=== PATIENT | female | born 1955 | race Caucasian/White ===

== ENCOUNTER 2017-09-29 06:08 | Day surgery (SDC) | payer OTHER ==
[~2017-09-29 06:08] MED LIST: Lactated Ringers 1,000 ML IV SCH; Lidocaine 1%/Sod Bicarbonate in NS 8.4% 1 ML Syringe IV PRN; Sodium Chloride 0.9% 10 ML Syringe FLUSH PRN
[2017-09-29] MEDS ORDERED: Bupivacaine 0.25% 30 ML SDV ONE (06:25)
[2017-09-29] MEDS ORDERED: Sennosides 8.6 MG Tab PO PRN (06:33)
[2017-09-29] MEDS ORDERED: Naloxone 0.4 MG/ML SDV IVPUSH PRN (06:33)
[2017-09-29] MEDS ORDERED: Morphine 2 MG/ML Syringe IVPUSH PRN (06:33)
[2017-09-29] MEDS ORDERED: Ondansetron 4 MG/2 ML SDV IVPUSH PRN (06:33)
[2017-09-29] MEDS ORDERED: Magnesium Hydroxide 400 MG/5 ML Susp 30 ML Cup PO PRN (06:33)
[2017-09-29] MEDS ORDERED: diphenhydrAMINE 50 MG/ML SDV IVPUSH PRN ×2 (06:33→08:19)
[2017-09-29] MEDS ORDERED: Bisacodyl 5 MG Tab PO PRN (06:33)
[2017-09-29] MEDS ORDERED: Ketorolac 15 MG/ML SDV IVPUSH PRN (06:39)
--- NOTE | 2017-09-29 06:53 | PCM.PREANE ---
Preanesthetic Assessment - Procedure Proposed Procedure: Left Total Knee Arthroplasty - Anesthesia/Transfusion/Family Hx Anesthesia History: Prior Anesthesia Without Reaction Family History of Anesthesia Reaction: No Transfusion History: No Prior Transfusion(s) - Review of Systems General: No Symptoms, Other (Mild sore throat for the past few days) Pulmonary: No Symptoms Cardiovascular: No Symptoms Gastrointestinal: Other (GERD controlled with medications. ) Neurological: No Symptoms Other: Reports: None - Physical Assessment NPO Status Date: 09/28/17 NPO Status Time: 23:00 Pulse: 71 O2 Sat by Pulse Oximetry: 96 Respiratory Rate: 16 Blood Pressure: 155/87 Temperature: 37.1 C Weight: 73 kg ASA Class: 2 Mental Status: Alert & Oriented x3 Airway Class: Mallampati = 1 Dentition: Reports: Normal Dentition Thyro-Mental Finger Breadths: 3 Mouth Opening Finger Breadths: 3 ROM/Head Extension: Full Lungs: Clear to Auscultation, Normal Respiratory Effort Cardiovascular: Regular Rate, Regular Rhythm - Lab Values: Laboratory Last Values MRSA (PCR) Negative 09/17/17 13:34 - Imaging/EKG Impressions: Reviewed from Clinic. NSR. Rate 61 bpm. - Allergies Allergies/Adverse Reactions: Allergies Allergy/AdvReac Type Severity Reaction Status Date / Time No Known Allergies Allergy Verified 09/26/17 13:02 - Acknowledgements Anesthesia Type Planned: Spinal Pt an Appropriate Candidate for the Planned Anesthesia: Yes Alternatives and Risks of Anesthesia Discussed w Pt/Guardian: Yes Pt/Guardian Understands and Agrees with Anesthesia Plan: Yes Additional Comments: Dr. Medina aware patient complains of a sore throat, no other signs/symptoms noted. Proceed with procedure as planned per Dr. Medina. PreAnesthesia Questionnaire HEENT History: Reports: Sinusitis Cardiovascular History: Reports: Heart Murmur, High Cholesterol Gastrointestinal History: Reports: GERD Musculoskeletal History: Reports: Arthritis, Osteoarthritis Neurological History: Reports: Migraines - Past Surgical History HEENT Surgical History: Reports: Cataract Surgery GI Surgical History: Reports: Appendectomy, Colonoscopy Female Surgical History: Reports: Breast Biopsy - SUBSTANCE USE Smoking Status *Q: Never Smoker Recreational Drug Use History: No - HOME MEDS Home Medications: Home Meds Calcium Carbonate [Calcium] 1 tab PO DAILY 09/26/17 [History] Cholecalciferol (Vitamin D3) [Vitamin D3] 1 cap PO DAILY 09/26/17 [History] Lansoprazole 15 mg PO DAILY 09/26/17 [History] - CURRENT (IN HOUSE) MEDS Current Meds: Current Medications Bisacodyl (Dulcolax) 5 mg PO DAILY PRN PRN Reason: Constipation Morphine Sulfate 8 mg/Epinephrine HCl 0.3 mg/Cefuroxime Sodium 750 mg/Ketorolac Tromethamine 30 mg/Sodium Chloride 27.9 ml 0 mg .XX ONETIME ONE Stop: 09/29/17 06:40 Cyclobenzaprine HCl (Flexeril) 10 mg PO TID PRN PRN Reason: Spasms Diphenhydramine HCl (Benadryl) 25 mg IVPUSH Q4H PRN PRN Reason: Nausea Docusate Sodium (Colace) 100 mg PO BID PRN PRN Reason: Constipation Famotidine (Pepcid) 20 mg PO Q12H [facility] Lactated Ringer's (Ringers, Lactated) 1,000 mls @ 125 mls/hr IV ASDIRECTED [facility] Stop: 09/29/17 18:00 Cefazolin Sodium/Dextrose 2 gm (/ Premix) 50 mls @ 100 mls/hr IV Q8H [facility] Stop: 09/29/17 23:14 Ketorolac Tromethamine (Toradol) 15 mg IVPUSH Q6H PRN PRN Reason: Pain Lidocaine/Sodium Bicarbonate (Buffered Lidocaine 1% In Ns 8.4%) 0.25 ml IV ONETIME PRN PRN Reason: Prior to IV Start Stop: 09/29/17 18:00 Magnesium Hydroxide (Milk Of Magnesia) 30 ml PO BID PRN PRN Reason: Constipation Morphine Sulfate (Morphine) 2 mg IVPUSH Q2H PRN PRN Reason: Breakthrough Pain Naloxone HCl (Narcan) 0.1 mg IVPUSH Q5M PRN PRN Reason: Oversedation Ondansetron HCl (Zofran) 4 mg IVPUSH Q6H PRN PRN Reason: Nausea/Vomiting Oxycodone/Acetaminophen (Percocet 325-5 Mg) 1 - 2 tab PO Q4H PRN PRN Reason: Pain Rivaroxaban (Xarelto) 10 mg PO DAILY COLLIN Senna (Senna) 8.6 mg PO BID PRN PRN Reason: Constipation Sodium Chloride (Saline Flush) 10 ml FLUSH ASDIRECTED PRN PRN Reason: Keep Vein Open Stop: 09/29/17 18:00 Discontinued Medications Bupivacaine HCl (Marcaine 0.25%) Confirm Administered Dose 30 ml .ROUTE .STK- MED ONE Stop: 09/29/17 06:26 Cefazolin Sodium (Ancef) Confirm Administered Dose 2 gm .ROUTE .STK-MED ONE Stop: 09/29/17 06:25 Iodine (Iodine 2% Mild Tincture) Confirm Administered Dose 30 ml .ROUTE .STK- MED ONE Stop: 09/29/17 06:25 Tranexamic Acid (Cyklokapron) Confirm Administered Dose 1,000 mg .ROUTE .STK- MED ONE Stop: 09/29/17 06:25 Triamcinolone Acetonide (Kenalog-40) Confirm Administered Dose 80 mg .ROUTE .STK -MED ONE Stop: 09/29/17 06:25 Vancomycin HCl (Vancomycin) Confirm Administered Dose 1 gm .ROUTE .STK-MED ONE Stop: 09/29/17 06:25
[2017-09-29] MEDS ORDERED: Morphine PF 1 MG/ML Amp ONE (06:55)
[2017-09-29] MEDS ORDERED: Famotidine 20 MG/2 ML SDV ONE (06:55)
[2017-09-29] MEDS ORDERED: Propofol 200 MG/20 ML SDV ONE (07:03)
[2017-09-29] MEDS ORDERED: fentaNYL 100 MCG/2 ML SDV ONE (07:03)
[2017-09-29] MEDS ORDERED: Lidocaine 1% 4 ML ONE (07:04)
[2017-09-29] MEDS ORDERED: Midazolam 1 MG/ML 2 ML SDV ONE (07:04)
[2017-09-29] MEDS ORDERED: ceFAZolin 1 GM Vial ONE (07:04)
[2017-09-29] MEDS ORDERED: Ketamine 500 mg/10 ML MDV ONE (07:04)
[2017-09-29] MEDS ORDERED: Ondansetron 4 MG/2 ML SDV ONE (08:16)
[2017-09-29] MEDS ORDERED: Lactated Ringers 2,000 ML ONE (08:16)
[2017-09-29] MEDS ORDERED: Dexamethasone 4 MG/ML SDV ONE (08:17)
[2017-09-29] MEDS ORDERED: Ketorolac 30 MG/ML SDV ONE (08:17)
[2017-09-29] MEDS ORDERED: ePHEDrine 50 MG/ML SDV IVPUSH PRN (08:19)
[2017-09-29] MEDS ORDERED: fentaNYL 100 MCG/2 ML SDV IVPUSH PRN (08:19)
[2017-09-29] MEDS: Iodine/Sodium Iodide 2% Tincture 30 ML Bottle ONE ×2 (08:26→08:36)
[2017-09-29] MEDS: ceFAZolin 1 GM Vial ONE ×2 (08:26→08:40)
[2017-09-29] MEDS: Bupivacaine 0.25% 30 ML SDV ONE ×4 (08:27→09:23)
[2017-09-29] MEDS: Vancomycin 1 GM SDV ONE ×2 (08:34→08:49)
[2017-09-29] MEDS: Triamcinolone Acetonide 40 MG/ML 1 ML MDV ONE ×2 (08:35→09:23)
[2017-09-29] MEDS ORDERED: Morphine 8 MG, EPINEPHrine 0.3 MG, Cefuroxime 750 MG, Ketorolac 30 MG, Sodium Chloride ... ONE ×5 (09:00)
--- NOTE | 2017-09-29 09:35 | PCM.POSTAN ---
POST ANESTHESIA ASSESSMENT - MENTAL STATUS Mental Status: Alert, Oriented - VITAL SIGNS Pulse Rate: 97 SaO2: 95 Resp Rate: 17 Blood Pressure: 115/66 Temperature: 37.2 C - RESPIRATORY Respiratory Status: Respiratory Rate WNL, Airway Patent, O2 Saturation Stable, Supplemental Oxygen - CARDIOVASCULAR CV Status: Pulse Rate WNL, Blood Pressure Stable - GASTROINTESTINAL GI Status: No Symptoms - PAIN Pain Score: 0 - POST OP HYDRATION Hydration Status: Adequate & Stable
[2017-09-29] MEDS ORDERED: Morphine 4 MG/ML Syringe IVPUSH PRN (09:36)
--- NOTE | 2017-09-29 10:16 | CR ---
Left knee: AP and lateral views of the left knee were obtained. Comparison: No prior knee exam. Knee prosthesis is seen. Components are aligned. Underlying bony structures appear intact. Soft tissue air is noted from the procedure. Impression: 1. Satisfactory radiographic appearance of recently placed left knee prosthesis. Diagnostic code #2
[2017-09-29] MEDS ORDERED: Haloperidol Lactate 5 MG/ML SDV IVPUSH ONE (10:30)
[2017-09-29] MEDS: ceFAZolin 2 GM in Premix Bag 1 BAG IV SCH ×2 (15:51→22:31)
--- NOTE | 2017-09-29 17:08 | PCM.CONS ---
H&P History of Present Illness - General Date of Service: 09/29/17 Admit Problem/Dx: Admission Diagnosis/Problem Admission Diagnosis/Problem Osteoarthritis of knee Source of Information: Patient, Old Records, Provider, RN, RN Notes Reviewed, Other (Surgical notes ) History Limitations: Reports: No Limitations - History of Present Illness Initial Comments - Free Text/Narative: Adilia Arthur is a 62 yo [address] patient of Dr. Medina who is post-operative day 0 of left TKA and right knee cortisone injection. Hospital medicine was consulted for post-operative medical care. At this time she is resting in bed. Pain is controlled. She eyes any chest pain, shortness of breath, or palpitations. She does have some intermittent nausea and vomiting. Reglan is ordered. She carries a history of: GERD, HLD, heart murmur, osteoarthritis, arthritis, migraines. She was never a smoker. She is a full code. Her primary care provider is Dr. Lentz, here at [facility]. Left Knee Pain Score (Numeric/FACES): 3 - Related Data Allergies/Adverse Reactions: Allergies Allergy/AdvReac Type Severity Reaction Status Date / Time No Known Allergies Allergy Verified 09/26/17 13:02 Home Medications: Home Meds Calcium Carbonate [Calcium] 1 tab PO DAILY 09/26/17 [History] Cholecalciferol (Vitamin D3) [Vitamin D3] 1 cap PO DAILY 09/26/17 [History] Lansoprazole 15 mg PO DAILY 09/26/17 [History] Past Medical History HEENT History: Reports: Sinusitis Cardiovascular History: Reports: Heart Murmur, High Cholesterol Gastrointestinal History: Reports: GERD Musculoskeletal History: Reports: Arthritis, Osteoarthritis Neurological History: Reports: Migraines - Past Surgical History HEENT Surgical History: Reports: Cataract Surgery GI Surgical History: Reports: Appendectomy, Colonoscopy Female Surgical History: Reports: Breast Biopsy Social & Family History - Tobacco Use Smoking Status *Q: Never Smoker - Recreational Drug Use Recreational Drug Use: No Drug Use in Last 12 Months: No H&P Review of Systems - Review of Systems: Review Of Systems: See Below General: Reports: No Symptoms. Denies: Fever, Chills, Malaise, Weakness HEENT: Reports: No Symptoms. Denies: Ear Pain, Eye Pain, Headaches, Visual Changes Pulmonary: Reports: No Symptoms. Denies: Shortness of Breath, Wheezing, Pleuritic Chest Pain Cardiovascular: Reports: No Symptoms. Denies: Chest Pain, Palpitations, Dyspnea on Exertion, Lightheadedness Gastrointestinal: Reports: Nausea, Vomiting. Denies: Abdominal Pain, Constipation, Diarrhea Genitourinary: Reports: No Symptoms. Denies: Dysuria, Frequency, Burning, Pain , Urgency Musculoskeletal: Reports: Joint Pain (left knee ) Skin: Reports: No Symptoms Psychiatric: Reports: No Symptoms Neurological: Reports: No Symptoms Hematologic/Lymphatic: Reports: No Symptoms Immunologic: Reports: No Symptoms Exam - Exam Exam: See Below - Vital Signs Vital Signs: Last Vital Signs Temp 97.5 F 09/29/17 15:00 Pulse 57 L 09/29/17 15:00 Resp 19 09/29/17 15:00 BP 144/65 H 09/29/17 15:00 Pulse Ox 94 L 09/29/17 15:00 Weight: 160 lb 14.999 oz - Exam Quality Assessment: Supplemental Oxygen, DVT Prophylaxis General: Alert, Oriented, Cooperative. No: Mild Distress HEENT: PERRLA, Hearing Intact, Mucosa Moist & Milnor, Nares Patent, Normal Nasal Septum, Posterior Pharynx Clear, Conjunctiva Clear, EOMI, EACs Clear, TMs Clear Neck: Supple, Trachea Midline. No: JVD, Thyromegaly Lungs: Clear to Auscultation, Normal Respiratory Effort Cardiovascular: Regular Rate, Regular Rhythm GI/Abdominal Exam: Normal Bowel Sounds, Soft, Non-Tender, No Organomegaly, No Distention, No Abnormal Bruit, No Mass, Pelvis Stable (Female) Exam: Deferred Rectal (Female) Exam: Deferred Back Exam: Normal Inspection, Full Range of Motion Extremities: No Pedal Edema, Normal Capillary Refill, Limited Range of Motion, Other (FABBY bandage on left knee. Bandage is dry and intact. Boutte pack in place. ) Peripheral Pulses: 2+: Radial (L), Radial (R), 3+: Posterior Tibial (L), Posterior Tibial (R), Dorsalis Pedis (L), Dorsalis Pedis (R) Skin: Warm, Dry, Intact Neurological: Cranial Nerves Intact (Grossly) Neuro Extensive - Mental Status: Alert, Oriented x3, Normal Mood/Affect, Normal Cognition Neuro Extensive - Motor, Sensory, Reflexes: CN II-XII Intact. No: Normal Gait Psychiatric: Alert, Normal Affect, Normal Mood Consult PN Assessment/Plan POD#: 0 Procedures: Procedures ASSAY GLUCOSE BLOOD QUANT (12/10/16) ASSAY OF PREALBUMIN (09/12/17) ASSAY OF SERUM ALBUMIN (09/12/17) ASSAY THYROID STIM HORMONE (11/23/14) CHEST X-RAY 2VW FRONTAL&LATL (06/25/17) COMP SCREEN MAMMOGRAM ADD-ON (11/27/15) COMPLETE CBC W/AUTO DIFF WBC (09/12/17) COMPREHEN METABOLIC PANEL (11/23/14) COMPUTER DX MAMMOGRAM ADD-ON (11/21/14) DXA BONE DENSITY AXIAL (12/25/16) LIPID PANEL (12/10/16) METABOLIC PANEL TOTAL CA (09/12/17) PROTHROMBIN TIME (09/12/17) ROUTINE VENIPUNCTURE (09/12/17) THROMBOPLASTIN TIME PARTIAL (09/12/17) ULTRASOUND BREAST LIMITED (06/25/17) (1) S/P total knee arthroplasty SNOMED Code(s): 4824380356739, 8714830832386 Code(s): Z96.659 - PRESENCE OF UNSPECIFIED ARTIFICIAL KNEE JOINT Priority: High Current Visit: Yes Qualifiers: Laterality: left Qualified Code(s): Z96.652 - Presence of left artificial knee joint (2) Osteoarthritis SNOMED Code(s): 125525277 Code(s): M19.90 - UNSPECIFIED OSTEOARTHRITIS, UNSPECIFIED SITE Priority: High Current Visit: Yes Qualifiers: Osteoarthritis location: knee Osteoarthritis type: primary Laterality: bilateral Qualified Code(s): M17.0 - Bilateral primary osteoarthritis of knee (3) HLD (hyperlipidemia) SNOMED Code(s): 49796167 Code(s): E78.5 - HYPERLIPIDEMIA, UNSPECIFIED Priority: Low Current Visit : No Qualifiers: Hyperlipidemia type: unspecified Qualified Code(s): E78.5 - Hyperlipidemia , unspecified (4) Arthritis SNOMED Code(s): 4400387 Code(s): M19.90 - UNSPECIFIED OSTEOARTHRITIS, UNSPECIFIED SITE Current Visit: Yes Problem List Initiated/Reviewed/Updated: Yes Plan: I/P: Acute: S/P Left total knee arthroplasty - post-operative day 0 -DVT prophylaxis and pain management per primary care team -PT/OT -IS/RT -Monitor oxygen saturation -Titrate oxygen as needed -Vital signs stable -Monitor labs -Pre-operative Hgb was 13.8 -Pre-operative eGFR >60 Osteoarthritis of bilateral knees -Pain management per primary care team S/P Right knee cortisone injection -Management per primary care team Post-operative nausea and vomiting -Reglan given -Scopolamine patch ordered Chronic: OA Breast lump HLD GERD Recent H. Pylori infection hx/o migraines Plan: CM for discharge planning GI prophylaxis Home medications as indicated Other orders as listed above Routine AM labs She is a full code. Her PCP is Dr. Lentz here at the [facility]. Thank you for allowing us to participate in the care of this patient!! Total time spend with patient 40 minutes. Requesting Provider: Dr. Medina Date Consult Requested: 09/29/17 Reason for Consult: Post-operative medical managmenet Patient History Reviewed: Yes Admission H&P Reviewed: Yes Time Spent (in minutes): 40
[2017-09-29] MEDS ORDERED: Metoclopramide 10 MG/2 ML SDV IVPUSH SCH (18:30)
[2017-09-29] MEDS ORDERED: Metoclopramide 10 MG/2 ML SDV IVPUSH PRN (18:36)
[2017-09-29] MEDS: Acetaminophen/oxyCODONE 325-5 MG Tab PO PRN (20:02)
[2017-09-29] MEDS ORDERED: Scopolamine 1 MG Transdermal Patch TRDERM PRN (20:08)
[2017-09-29] MEDS ORDERED: Docusate Sodium 100 MG Cap PO PRN (21:00)
[2017-09-29] MEDS: Famotidine 20 MG Tab PO SCH (21:32)
[2017-09-29] MEDS: Docusate Sodium 100 MG Cap PO SCH (21:33)
[2017-09-29] MEDS: Cyclobenzaprine 10 MG Tab PO PRN (21:49)
[2017-09-30] MEDS: Acetaminophen/oxyCODONE 325-5 MG Tab PO PRN ×4 (02:01→14:52)
[2017-09-30] MEDS: ceFAZolin 2 GM in Premix Bag 1 BAG IV SCH (06:05)
[2017-09-30] MEDS: Cyclobenzaprine 10 MG Tab PO PRN ×2 (06:06→14:52)
--- NOTE | 2017-09-30 08:35 | PCM48HPAN ---
Post Anesthesia Note - EVALUATION WITHIN 48HRS OF ANESTHETIC Vital Signs in Normal Range: Yes Patient Participated in Evaluation: Yes Respiratory Function Stable: Yes Airway Patent: Yes Cardiovascular Function Stable: Yes Hydration Status Stable: Yes Pain Control Satisfactory: Yes Nausea and Vomiting Control Satisfactory: Yes (nausea yesterday- much better today) Mental Status Recovered: Yes
--- NOTE | 2017-09-30 08:41 | PCM.SURGPN ---
- General Info Date of Service: 09/30/17 POD#: 1 Functional Status: Reports: Pain Controlled, Tolerating Diet, Ambulating, Urinating, Incentive Spirometry - Review of Systems Musculoskeletal: Reports: Other (The pt met inpatient therapy goals.) - Patient Data Vitals - Most Recent: Last Vital Signs Temp 98.0 F 09/29/17 20:00 Pulse 95 09/29/17 20:00 Resp 18 09/30/17 00:00 BP 131/73 09/29/17 20:00 Pulse Ox 98 09/30/17 07:00 Weight - Most Recent: 160 lb 14.999 oz I&O - Last 24 Hours: Intake & Output 09/29/17 09/30/17 09/30/17 22:59 06:59 14:59 Output Total 1850 Balance -1850 Lab Results Last 24 Hrs: Laboratory Results - last 24 hr 09/30/17 09/30/17 Range/Units 07:40 07:40 WBC 8.86 (3.98-10.04) K/mm3 RBC 3.83 L (3.98-5.22) M/mm3 Hgb 11.6 (11.2-15.7) gm/L Hct 35.5 (34.1-44.9) % MCV 92.7 (79.4-94.8) fl MCH 30.3 (25.6-32.2) pg MCHC 32.7 (32.2-35.5) g/dl RDW Std Deviation 41.8 (36.4-46.3) fL Plt Count 192 (182-369) K/mm3 MPV 9.7 (9.4-12.3) fl Sodium 140 (136-145) mEq/L Potassium 3.9 (3.5-5.1) mEq/L Chloride 103 (98-107) mEq/L Carbon Dioxide 30 (21-32) mEq/L Anion Gap 10.9 (5-15) BUN 13 (7-18) mg/dL Creatinine 0.8 (0.55-1.02) mg/dL Est Cr Clr Drug Dosing 64.58 mL/min Estimated GFR (MDRD) > 60 (>60) mL/min BUN/Creatinine Ratio 16.3 (14-18) Glucose 101 (74-106) mg/dL Calcium 9.1 (8.5-10.1) mg/dL Total Bilirubin 0.4 (0.2-1.0) mg/dL AST 31 (15-37) U/L ALT 29 (14-59) U/L Alkaline Phosphatase 57 (46-116) U/L Total Protein 6.4 (6.4-8.2) g/dl Albumin 3.2 L (3.4-5.0) g/dl Globulin 3.2 gm/dL Albumin/Globulin Ratio 1.0 (1-2) Med Orders - Current: Current Medications Bisacodyl (Dulcolax) 5 mg PO DAILY PRN PRN Reason: Constipation Calcium Carbonate/Glycine (Calcium Carbonate) 600 mg PO DAILY [facility] Cholecalciferol (Vitamin D3) 4,000 units PO DAILY [facility] Cyclobenzaprine HCl (Flexeril) 10 mg PO TID PRN PRN Reason: Spasms Last Admin: 09/30/17 06:06 Dose: 10 mg Diphenhydramine HCl (Benadryl) 25 mg IVPUSH Q4H PRN PRN Reason: Nausea Docusate Sodium (Colace) 100 mg PO BID PRN PRN Reason: Constipation Docusate Sodium (Colace) 100 mg PO BID [facility] Last Admin: 09/29/17 21:33 Dose: 100 mg Famotidine (Pepcid) 20 mg PO Q12H [facility] Last Admin: 09/29/17 21:32 Dose: 20 mg Ketorolac Tromethamine (Toradol) 15 mg IVPUSH Q6H PRN PRN Reason: Pain Magnesium Hydroxide (Milk Of Magnesia) 30 ml PO BID PRN PRN Reason: Constipation Metoclopramide HCl (Reglan) 5 mg IVPUSH Q6H PRN PRN Reason: Nausea/Vomiting Last Admin: 09/29/17 18:52 Dose: 5 mg Morphine Sulfate (Morphine) 2 mg IVPUSH Q2H PRN PRN Reason: Breakthrough Pain Naloxone HCl (Narcan) 0.1 mg IVPUSH Q5M PRN PRN Reason: Oversedation Ondansetron HCl (Zofran) 4 mg IVPUSH Q6H PRN PRN Reason: Nausea/Vomiting Last Admin: 09/29/17 16:00 Dose: 4 mg Oxycodone/Acetaminophen (Percocet 325-5 Mg) 1 - 2 tab PO Q4H PRN PRN Reason: Pain Last Admin: 09/30/17 06:07 Dose: 2 tab Pantoprazole Sodium (Protonix) 40 mg PO ACBREAKFAST COLLIN Rivaroxaban (Xarelto) 10 mg PO DAILY COLLIN Scopolamine (Scopolamine) 1 each TRDERM Q72H PRN PRN Reason: Nausea and vomiting Senna (Senna) 8.6 mg PO BID PRN PRN Reason: Constipation Discontinued Medications Bupivacaine HCl (Marcaine 0.25%) Confirm Administered Dose 30 ml .ROUTE .STK- MED ONE Stop: 09/29/17 06:26 Bupivacaine HCl (Marcaine 0.25%) Confirm Administered Dose 30 ml .ROUTE .STK- MED ONE Stop: 09/29/17 06:51 Last Admin: 09/29/17 09:23 Dose: 4 ml Cefazolin Sodium (Ancef) Confirm Administered Dose 2 gm .ROUTE .STK-MED ONE Stop: 09/29/17 06:25 Last Admin: 09/29/17 08:40 Dose: 2 gm Cefazolin Sodium (Ancef) Confirm Administered Dose 2 gm .ROUTE .STK-MED ONE Stop: 09/29/17 07:05 Morphine Sulfate 8 mg/Epinephrine HCl 0.3 mg/Cefuroxime Sodium 750 mg/Ketorolac Tromethamine 30 mg/Sodium Chloride 27.9 ml 0 mg .XX ONETIME ONE Stop: 09/29/17 09:01 Last Admin: 09/29/17 08:33 Dose: 788.3 mg Dexamethasone (Dexamethasone) Confirm Administered Dose 4 mg .ROUTE .STK-MED ONE Stop: 09/29/17 08:18 Diphenhydramine HCl (Benadryl) 25 mg IVPUSH Q6H PRN PRN Reason: Pruritis Ephedrine Sulfate (Ephedrine Sulfate) 5 mg IVPUSH ASDIRECTED PRN PRN Reason: Hypotension Stop: 09/29/17 21:00 Famotidine (Pepcid) Confirm Administered Dose 20 mg .ROUTE .STK-MED ONE Stop: 09/29/17 06:56 Fentanyl (Sublimaze) Confirm Administered Dose 100 mcg .ROUTE .STK-MED ONE Stop: 09/29/17 07:04 Fentanyl (Sublimaze) 50 mcg IVPUSH Q5M PRN PRN Reason: Pain Stop: 09/29/17 16:00 Haloperidol Lactate (Haldol) 1 mg IVPUSH ONETIME ONE Stop: 09/29/17 10:31 Last Admin: 09/29/17 11:22 Dose: Not Given Lactated Ringer's (Ringers, Lactated) 1,000 mls @ 125 mls/hr IV ASDIRECTED [facility] Stop: 09/29/17 18:00 Cefazolin Sodium/Dextrose 2 gm (/ Premix) 50 mls @ 100 mls/hr IV Q8H [facility] Stop: 09/30/17 07:29 Last Admin: 09/30/17 06:05 Dose: 100 mls/hr Lidocaine HCl (Xylocaine-Mpf 1%) Confirm Administered Dose 4 mls @ as directed .ROUTE .STK-MED ONE Stop: 09/29/17 07:05 Lactated Ringer's (Ringers, Lactated) Confirm Administered Dose 2,000 mls @ as directed .ROUTE .STK-MED ONE Stop: 09/29/17 08:17 Iodine (Iodine 2% Mild Tincture) Confirm Administered Dose 30 ml .ROUTE .STK- MED ONE Stop: 09/29/17 06:25 Last Admin: 09/29/17 08:36 Dose: 18 ml Ketamine HCl (Ketalar) Confirm Administered Dose 500 mg .ROUTE .STK-MED ONE Stop: 09/29/17 07:05 Ketorolac Tromethamine (Toradol) Confirm Administered Dose 30 mg .ROUTE .STK- MED ONE Stop: 09/29/17 08:18 Lidocaine/Sodium Bicarbonate (Buffered Lidocaine 1% In Ns 8.4%) 0.25 ml IV ONETIME PRN PRN Reason: Prior to IV Start Stop: 09/29/17 18:00 Midazolam HCl (Versed 1 Mg/Ml) Confirm Administered Dose 2 mg .ROUTE .STK-MED ONE Stop: 09/29/17 07:05 Morphine Sulfate (Morphine) 2 mg IVPUSH Q2H PRN PRN Reason: Breakthrough Pain Morphine Sulfate (Duramorph Pf) Confirm Administered Dose 1 mg .ROUTE .STK-MED ONE Stop: 09/29/17 06:56 Ondansetron HCl (Zofran) Confirm Administered Dose 4 mg .ROUTE .STK-MED ONE Stop: 09/29/17 08:17 Propofol (Diprivan 20 Ml) Confirm Administered Dose 800 mg .ROUTE .STK-MED ONE Stop: 09/29/17 07:04 Sodium Chloride (Saline Flush) 10 ml FLUSH ASDIRECTED PRN PRN Reason: Keep Vein Open Stop: 09/29/17 18:00 Tranexamic Acid (Cyklokapron) Confirm Administered Dose 1,000 mg .ROUTE .STK- MED ONE Stop: 09/29/17 06:25 Last Admin: 09/29/17 08:54 Dose: 1,000 mg Triamcinolone Acetonide (Kenalog-40) Confirm Administered Dose 80 mg .ROUTE .STK -MED ONE Stop: 09/29/17 06:25 Last Admin: 09/29/17 09:23 Dose: 80 mg Vancomycin HCl (Vancomycin) Confirm Administered Dose 1 gm .ROUTE .STK-MED ONE Stop: 09/29/17 06:25 Last Admin: 09/29/17 08:49 Dose: 1 gm - Exam Wound/Incisions: Dressing Dry and Intact General: Alert, Cooperative, No Acute Distress Lungs: Normal Respiratory Effort Extremities: Other (NVS intact for BLE. Beverly's negative.) - Problem List Review Problem List Initiated/Reviewed/Updated: Yes - My Orders Last 24 Hours: Active Orders 24 hr Category Date Time Status Cooling Warming Measures [RC] ASDIRECTED Care 09/29/17 08:18 Inactive Notify Provider [RC] ASDIRECTED Care 09/29/17 08:19 Active Pulse Oximetry [RC] Q1H Care 09/29/17 08:18 Active Regular Diet [DIET] Diet 09/29/17 Lunch Active Calcium Carbonate Med 09/30/17 09:00 Active 600 mg PO DAILY Cholecalciferol (Vitamin D3) [Vitamin D3] Med 09/30/17 09:00 Active 4,000 units PO DAILY Docusate Sodium [Colace] Med 09/29/17 21:00 Active 100 mg PO BID Docusate Sodium [Colace] Med 09/29/17 21:00 Stop Req 100 mg PO BID PRN Famotidine [Pepcid] Med 09/29/17 21:00 Active 20 mg PO Q12H Metoclopramide [Reglan] Med 09/29/17 18:36 Active 5 mg IVPUSH Q6H PRN Morphine Med 09/29/17 09:36 Active 2 mg IVPUSH Q2H PRN Pantoprazole [ProTONIX] Med 09/30/17 09:00 Active 40 mg PO ACBREAKFAST Rivaroxaban [Xarelto] Med 09/30/17 09:00 Pending 10 mg PO DAILY Scopolamine Med 09/29/17 20:08 Active 1 each TRDERM Q72H PRN Pulse Oximetry Continuous Monitoring [OM.PC] Routine Oth 09/29/17 08:19 Active Medication Orders Bisacodyl (Dulcolax) 5 mg PO DAILY PRN PRN Reason: Constipation Calcium Carbonate/Glycine (Calcium Carbonate) 600 mg PO DAILY COLLIN Cholecalciferol (Vitamin D3) 4,000 units PO DAILY [facility] Cyclobenzaprine HCl (Flexeril) 10 mg PO TID PRN PRN Reason: Spasms Last Admin: 09/30/17 06:06 Dose: 10 mg Admin: 09/29/17 21:49 Dose: 10 mg Diphenhydramine HCl (Benadryl) 25 mg IVPUSH Q4H PRN PRN Reason: Nausea Docusate Sodium (Colace) 100 mg PO BID PRN PRN Reason: Constipation Docusate Sodium (Colace) 100 mg PO BID [facility] Last Admin: 09/29/17 21:33 Dose: 100 mg Famotidine (Pepcid) 20 mg PO Q12H [facility] Last Admin: 09/29/17 21:32 Dose: 20 mg Ketorolac Tromethamine (Toradol) 15 mg IVPUSH Q6H PRN PRN Reason: Pain Magnesium Hydroxide (Milk Of Magnesia) 30 ml PO BID PRN PRN Reason: Constipation Metoclopramide HCl (Reglan) 5 mg IVPUSH Q6H PRN PRN Reason: Nausea/Vomiting Last Admin: 09/29/17 18:52 Dose: 5 mg Morphine Sulfate (Morphine) 2 mg IVPUSH Q2H PRN PRN Reason: Breakthrough Pain Naloxone HCl (Narcan) 0.1 mg IVPUSH Q5M PRN PRN Reason: Oversedation Ondansetron HCl (Zofran) 4 mg IVPUSH Q6H PRN PRN Reason: Nausea/Vomiting Last Admin: 09/29/17 16:00 Dose: 4 mg Oxycodone/Acetaminophen (Percocet 325-5 Mg) 1 - 2 tab PO Q4H PRN PRN Reason: Pain Last Admin: 09/30/17 06:07 Dose: 2 tab Admin: 09/30/17 02:01 Dose: 2 tab Admin: 09/29/17 20:02 Dose: 2 tab Pantoprazole Sodium (Protonix) 40 mg PO ACBREAKFAST COLLIN Rivaroxaban (Xarelto) 10 mg PO DAILY COLLIN Scopolamine (Scopolamine) 1 each TRDERM Q72H PRN PRN Reason: Nausea and vomiting Senna (Senna) 8.6 mg PO BID PRN PRN Reason: Constipation - Assessment Assessment (Free Text/Narrative):: POD#1 - left TKA with right knee cortisone injection - Plan Plan (Free Text/Narrative):: 1. Hgb 11.6. 2. Xarelto for VTE prophylaxis. 3. Discharge to home today. The pt was evaluated by Dr. Medina.
[2017-09-30] MEDS ORDERED: Pantoprazole 40 MG Tab.CR PO SCH (09:00)
[2017-09-30] MEDS: Docusate Sodium 100 MG Cap PO SCH (09:00)
[2017-09-30] MEDS: Famotidine 20 MG Tab PO SCH (09:00)
[2017-09-30] MEDS ORDERED: Cholecalciferol (Vitamin D3) 1,000 Unit Tab PO SCH (09:00)
[2017-09-30] MEDS ORDERED: Calcium Carbonate 600 MG Tab PO SCH (09:00)
[2017-09-30] MEDS ORDERED: Rivaroxaban 10 MG Tab PO SCH (09:00)
--- NOTE | 2017-09-30 12:12 | PCM.CONSN ---
- General Info Date of Service: 09/30/17 Admission Dx/Problem (Free Text): Admission Diagnosis/Problem Admission Diagnosis/Problem Osteoarthritis of knee POD #1 Lt TKA, doing well, pain under good control, no nausea VSS Labs stable Functional Status: Reports: Pain Controlled, Tolerating Diet, Ambulating, Urinating, Incentive Spirometry. Denies: New Symptoms - Review of Systems General: Reports: No Symptoms HEENT: Reports: No Symptoms Pulmonary: Reports: No Symptoms Cardiovascular: Reports: No Symptoms Gastrointestinal: Reports: No Symptoms Genitourinary: Reports: No Symptoms Musculoskeletal: Reports: Leg Pain Skin: Reports: No Symptoms Neurological: Reports: No Symptoms Psychiatric: Reports: No Symptoms - Patient Data Vitals - Most Recent: Last Vital Signs Temp 98.0 F 09/29/17 20:00 Pulse 95 09/29/17 20:00 Resp 18 09/30/17 00:00 BP 131/73 09/29/17 20:00 Pulse Ox 98 09/30/17 07:00 Weight - Most Recent: 160 lb 14.999 oz I&O - Last 24 Hours: Intake & Output 09/29/17 09/30/17 09/30/17 22:59 06:59 14:59 Output Total 1850 Balance -1850 Lab Results Last 24 Hours: Laboratory Results - last 24 hr 09/30/17 09/30/17 Range/Units 07:40 07:40 WBC 8.86 (3.98-10.04) K/mm3 RBC 3.83 L (3.98-5.22) M/mm3 Hgb 11.6 (11.2-15.7) gm/L Hct 35.5 (34.1-44.9) % MCV 92.7 (79.4-94.8) fl MCH 30.3 (25.6-32.2) pg MCHC 32.7 (32.2-35.5) g/dl RDW Std Deviation 41.8 (36.4-46.3) fL Plt Count 192 (182-369) K/mm3 MPV 9.7 (9.4-12.3) fl Sodium 140 (136-145) mEq/L Potassium 3.9 (3.5-5.1) mEq/L Chloride 103 (98-107) mEq/L Carbon Dioxide 30 (21-32) mEq/L Anion Gap 10.9 (5-15) BUN 13 (7-18) mg/dL Creatinine 0.8 (0.55-1.02) mg/dL Est Cr Clr Drug Dosing 64.58 mL/min Estimated GFR (MDRD) > 60 (>60) mL/min BUN/Creatinine Ratio 16.3 (14-18) Glucose 101 (74-106) mg/dL Calcium 9.1 (8.5-10.1) mg/dL Total Bilirubin 0.4 (0.2-1.0) mg/dL AST 31 (15-37) U/L ALT 29 (14-59) U/L Alkaline Phosphatase 57 (46-116) U/L Total Protein 6.4 (6.4-8.2) g/dl Albumin 3.2 L (3.4-5.0) g/dl Globulin 3.2 gm/dL Albumin/Globulin Ratio 1.0 (1-2) Med Orders - Current: Current Medications Bisacodyl (Dulcolax) 5 mg PO DAILY PRN PRN Reason: Constipation Calcium Carbonate/Glycine (Calcium Carbonate) 600 mg PO DAILY [facility] Last Admin: 09/30/17 09:00 Dose: 600 mg Cholecalciferol (Vitamin D3) 4,000 units PO DAILY [facility] Last Admin: 09/30/17 09:00 Dose: 4,000 units Cyclobenzaprine HCl (Flexeril) 10 mg PO TID PRN PRN Reason: Spasms Last Admin: 09/30/17 06:06 Dose: 10 mg Diphenhydramine HCl (Benadryl) 25 mg IVPUSH Q4H PRN PRN Reason: Nausea Docusate Sodium (Colace) 100 mg PO BID PRN PRN Reason: Constipation Docusate Sodium (Colace) 100 mg PO BID [facility] Last Admin: 09/30/17 09:00 Dose: 100 mg Famotidine (Pepcid) 20 mg PO Q12H [facility] Last Admin: 09/30/17 09:00 Dose: 20 mg Ketorolac Tromethamine (Toradol) 15 mg IVPUSH Q6H PRN PRN Reason: Pain Magnesium Hydroxide (Milk Of Magnesia) 30 ml PO BID PRN PRN Reason: Constipation Metoclopramide HCl (Reglan) 5 mg IVPUSH Q6H PRN PRN Reason: Nausea/Vomiting Last Admin: 09/29/17 18:52 Dose: 5 mg Morphine Sulfate (Morphine) 2 mg IVPUSH Q2H PRN PRN Reason: Breakthrough Pain Naloxone HCl (Narcan) 0.1 mg IVPUSH Q5M PRN PRN Reason: Oversedation Ondansetron HCl (Zofran) 4 mg IVPUSH Q6H PRN PRN Reason: Nausea/Vomiting Last Admin: 09/29/17 16:00 Dose: 4 mg Oxycodone/Acetaminophen (Percocet 325-5 Mg) 1 - 2 tab PO Q4H PRN PRN Reason: Pain Last Admin: 09/30/17 10:32 Dose: 2 tab Pantoprazole Sodium (Protonix) 40 mg PO ACBREAKFAST [facility] Last Admin: 09/30/17 09:00 Dose: 40 mg Rivaroxaban (Xarelto) 10 mg PO DAILY [facility] Last Admin: 09/30/17 09:51 Dose: 10 mg Scopolamine (Scopolamine) 1 each TRDERM Q72H PRN PRN Reason: Nausea and vomiting Senna (Senna) 8.6 mg PO BID PRN PRN Reason: Constipation Discontinued Medications Bupivacaine HCl (Marcaine 0.25%) Confirm Administered Dose 30 ml .ROUTE .STK- MED ONE Stop: 09/29/17 06:26 Bupivacaine HCl (Marcaine 0.25%) Confirm Administered Dose 30 ml .ROUTE .STK- MED ONE Stop: 09/29/17 06:51 Last Admin: 09/29/17 09:23 Dose: 4 ml Cefazolin Sodium (Ancef) Confirm Administered Dose 2 gm .ROUTE .STK-MED ONE Stop: 09/29/17 06:25 Last Admin: 09/29/17 08:40 Dose: 2 gm Cefazolin Sodium (Ancef) Confirm Administered Dose 2 gm .ROUTE .STK-MED ONE Stop: 09/29/17 07:05 Morphine Sulfate 8 mg/Epinephrine HCl 0.3 mg/Cefuroxime Sodium 750 mg/Ketorolac Tromethamine 30 mg/Sodium Chloride 27.9 ml 0 mg .XX ONETIME ONE Stop: 09/29/17 09:01 Last Admin: 09/29/17 08:33 Dose: 788.3 mg Dexamethasone (Dexamethasone) Confirm Administered Dose 4 mg .ROUTE .STK-MED ONE Stop: 09/29/17 08:18 Diphenhydramine HCl (Benadryl) 25 mg IVPUSH Q6H PRN PRN Reason: Pruritis Ephedrine Sulfate (Ephedrine Sulfate) 5 mg IVPUSH ASDIRECTED PRN PRN Reason: Hypotension Stop: 09/29/17 21:00 Famotidine (Pepcid) Confirm Administered Dose 20 mg .ROUTE .STK-MED ONE Stop: 09/29/17 06:56 Fentanyl (Sublimaze) Confirm Administered Dose 100 mcg .ROUTE .STK-MED ONE Stop: 09/29/17 07:04 Fentanyl (Sublimaze) 50 mcg IVPUSH Q5M PRN PRN Reason: Pain Stop: 09/29/17 16:00 Haloperidol Lactate (Haldol) 1 mg IVPUSH ONETIME ONE Stop: 09/29/17 10:31 Last Admin: 09/29/17 11:22 Dose: Not Given Lactated Ringer's (Ringers, Lactated) 1,000 mls @ 125 mls/hr IV ASDIRECTED COLLIN Stop: 09/29/17 18:00 Cefazolin Sodium/Dextrose 2 gm (/ Premix) 50 mls @ 100 mls/hr IV Q8H [facility] Stop: 09/30/17 07:29 Last Admin: 09/30/17 06:05 Dose: 100 mls/hr Lidocaine HCl (Xylocaine-Mpf 1%) Confirm Administered Dose 4 mls @ as directed .ROUTE .STK-MED ONE Stop: 09/29/17 07:05 Lactated Ringer's (Ringers, Lactated) Confirm Administered Dose 2,000 mls @ as directed .ROUTE .STK-MED ONE Stop: 09/29/17 08:17 Iodine (Iodine 2% Mild Tincture) Confirm Administered Dose 30 ml .ROUTE .STK- MED ONE Stop: 09/29/17 06:25 Last Admin: 09/29/17 08:36 Dose: 18 ml Ketamine HCl (Ketalar) Confirm Administered Dose 500 mg .ROUTE .STK-MED ONE Stop: 09/29/17 07:05 Ketorolac Tromethamine (Toradol) Confirm Administered Dose 30 mg .ROUTE .STK- MED ONE Stop: 09/29/17 08:18 Lidocaine/Sodium Bicarbonate (Buffered Lidocaine 1% In Ns 8.4%) 0.25 ml IV ONETIME PRN PRN Reason: Prior to IV Start Stop: 09/29/17 18:00 Midazolam HCl (Versed 1 Mg/Ml) Confirm Administered Dose 2 mg .ROUTE .STK-MED ONE Stop: 09/29/17 07:05 Morphine Sulfate (Morphine) 2 mg IVPUSH Q2H PRN PRN Reason: Breakthrough Pain Morphine Sulfate (Duramorph Pf) Confirm Administered Dose 1 mg .ROUTE .STK-MED ONE Stop: 09/29/17 06:56 Ondansetron HCl (Zofran) Confirm Administered Dose 4 mg .ROUTE .STK-MED ONE Stop: 09/29/17 08:17 Propofol (Diprivan 20 Ml) Confirm Administered Dose 800 mg .ROUTE .STK-MED ONE Stop: 09/29/17 07:04 Sodium Chloride (Saline Flush) 10 ml FLUSH ASDIRECTED PRN PRN Reason: Keep Vein Open Stop: 09/29/17 18:00 Tranexamic Acid (Cyklokapron) Confirm Administered Dose 1,000 mg .ROUTE .STK- MED ONE Stop: 09/29/17 06:25 Last Admin: 09/29/17 08:54 Dose: 1,000 mg Triamcinolone Acetonide (Kenalog-40) Confirm Administered Dose 80 mg .ROUTE .STK -MED ONE Stop: 09/29/17 06:25 Last Admin: 09/29/17 09:23 Dose: 80 mg Vancomycin HCl (Vancomycin) Confirm Administered Dose 1 gm .ROUTE .STK-MED ONE Stop: 09/29/17 06:25 Last Admin: 09/29/17 08:49 Dose: 1 gm - Exam Quality Assessment: DVT Prophylaxis General: Alert, Oriented, Cooperative, No Acute Distress HEENT: Pupils Equal, EOMI, Mucous Membr. Moist/[place] Neck: Supple Lungs: Clear to Auscultation, Normal Respiratory Effort Cardiovascular: Regular Rate, Regular Rhythm GI/Abdominal Exam: Normal Bowel Sounds, Soft, Non-Tender (Female) Exam: Deferred Extremities: Other (teds, scd's and ice to lt knee) Peripheral Pulses: 2+: Dorsalis Pedis (L), Dorsalis Pedis (R) Neurological: No New Focal Deficit Psy/Mental Status: Alert, Normal Affect, Normal Mood Consult PN Assessment/Plan POD#: 1 Procedures: Procedures ASSAY GLUCOSE BLOOD QUANT (12/10/16) ASSAY OF PREALBUMIN (09/12/17) ASSAY OF SERUM ALBUMIN (09/12/17) ASSAY THYROID STIM HORMONE (11/23/14) CHEST X-RAY 2VW FRONTAL&LATL (06/25/17) COMP SCREEN MAMMOGRAM ADD-ON (11/27/15) COMPLETE CBC W/AUTO DIFF WBC (09/12/17) COMPREHEN METABOLIC PANEL (11/23/14) COMPUTER DX MAMMOGRAM ADD-ON (11/21/14) DXA BONE DENSITY AXIAL (12/25/16) LIPID PANEL (12/10/16) METABOLIC PANEL TOTAL CA (09/12/17) PROTHROMBIN TIME (09/12/17) ROUTINE VENIPUNCTURE (09/12/17) THROMBOPLASTIN TIME PARTIAL (09/12/17) ULTRASOUND BREAST LIMITED (06/25/17) (1) S/P total knee arthroplasty SNOMED Code(s): 8140513460488, 6943486763030 Code(s): Z96.659 - PRESENCE OF UNSPECIFIED ARTIFICIAL KNEE JOINT Priority: High Current Visit: Yes Qualifiers: Laterality: left Qualified Code(s): Z96.652 - Presence of left artificial knee joint (2) Osteoarthritis SNOMED Code(s): 834109385 Code(s): M19.90 - UNSPECIFIED OSTEOARTHRITIS, UNSPECIFIED SITE Priority: High Current Visit: Yes Qualifiers: Osteoarthritis location: knee Osteoarthritis type: primary Laterality: bilateral Qualified Code(s): M17.0 - Bilateral primary osteoarthritis of knee (3) HLD (hyperlipidemia) SNOMED Code(s): 10377204 Code(s): E78.5 - HYPERLIPIDEMIA, UNSPECIFIED Priority: Low Current Visit : No Qualifiers: Hyperlipidemia type: unspecified Qualified Code(s): E78.5 - Hyperlipidemia , unspecified Problem List Initiated/Reviewed/Updated: Yes My Orders Last 24 Hours: My Active Orders 09/30/17 12:10 Ready for Discharge [RC] PER UNIT ROUTINE Plan: I/P: Acute: S/P Left total knee arthroplasty - post-operative day 1 -DVT prophylaxis and pain management per primary care team -PT/OT -IS/RT -Vital signs stable -Monitor labs -Pre-operative Hgb was 13.8--11.6 today -Pre-operative eGFR >60 Osteoarthritis of bilateral knees -Pain management per primary care team S/P Right knee cortisone injection -Management per primary care team Post-operative nausea and vomiting---resolved -Reglan given -Scopolamine patch ordered Chronic: OA Breast lump HLD GERD Recent H. Pylori infection hx/o migraines Plan: CM for discharge planning---OK from Hospitalist standpoint for discharge home today. GI prophylaxis Home medications as indicated Other orders as listed above Routine AM labs She is a full code. Her PCP is Dr. Lentz here at the [facility].
--- NOTE | 2017-10-01 09:25 | PCM.DCSUM1 ---
Discharge Summary - Hospital Course Brief History: Adilia is a 62 yo female who underwent left TKA with Dr. Medina on . The procedure was completed under spinal anesthesia. The pt tolerated the procedure well. Medical management for the pt's course was provided by the Hospitalist service. The pt's Hospital course was uneventful. The pt's Hgb on POD#1 was 11.6. On POD#1, Xarelto 10mg PO daily was initiated for VTE prophylaxis. SCDs and TEDs were also ordered. A Mepilex dressing was placed at the incision site at the time of surgery and remained clean and dry. The pt participated in P.T. and O.T. and progressed well. The pt was allowed to WBAT and used a FWW for mobility. On POD#1, the pt was deemed appropriate to discharge to home with her . - Discharge Data Discharge Date: 09/30/17 Discharge Disposition: Home, Self-Care 01 Condition: Good - Patient Summary/Data Consults: Consultations 09/29/17 06:33 Consult to Physician [CONS] Routine OT Evaluation and Treatment [CONS] Routine 09/29/17 06:37 PT Evaluation and Treatment [CONS] Routine - Patient Instructions Diet: Usual Diet as Tolerated Activity: Apply Ice, As Tolerated, Elevate Extremity, Full Weight Bearing Driving: Do Not Drive Showering/Bathing: May Shower Wound/Incision Care: Keep Operative Site/Wound Site Clean and Dry, Do NOT Change Dressing Notify Provider of: Fever, Increased Pain, Swelling and Redness, Drainage, Nausea and/or Vomiting Other/Special Instructions: Please get up and moving around every hour while awake. This helps to prevent blood clots. Please take the Xarelto blood thinner medication daily. Please wear the JEF hose during the day and you may remove them at night. Please schedule for P.T. Complete the P.T. exercises and stretches that were instructed in the Hospital. Please use the pain medication and muscle relaxant as needed. The medication may cause drowsiness and/or constipation. You could use a stool softener like docusate sodium or Colace 100mg twice daily and/or a laxative like Miralax daily for constipation. Contact your primary care provider for further instructions if you are constipated. Please schedule an appointment with your primary care provider for 'routine post-op care'. Use the incentive spirometer often. Please place ice to the knee often. Please elevate the limb to decrease swelling. Keep the Mepilex dressing in place until follow-up. Please call [phone] with questions or concerns. - Discharge Plan Prescriptions/Med Rec: Acetaminophen/oxyCODONE [Percocet 325-5 MG] 1 - 2 tab PO Q4H PRN #60 tablet PRN Reason: Pain Cyclobenzaprine [Flexeril] 10 mg PO TID PRN #40 tablet PRN Reason: Spasms Docusate Sodium [Colace] 100 mg PO BID #60 cap Rivaroxaban [Xarelto] 10 mg PO DAILY #40 tablet Home Medications: Home Meds Calcium Carbonate [Calcium] 1 tab PO DAILY 09/26/17 [History] Cholecalciferol (Vitamin D3) [Vitamin D3] 1 cap PO DAILY 09/26/17 [History] Lansoprazole 15 mg PO DAILY 09/26/17 [History] Acetaminophen/oxyCODONE [Percocet 325-5 MG] 1 - 2 tab PO Q4H PRN #60 tablet 06/09 [Rx] Cyclobenzaprine [Flexeril] 10 mg PO TID PRN #40 tablet 09/30/17 [Rx] Docusate Sodium [Colace] 100 mg PO BID #60 cap 09/30/17 [Rx] Rivaroxaban [Xarelto] 10 mg PO DAILY #40 tablet 09/30/17 [Rx] Patient Handouts: Total Knee Replacement, Care After, Total Knee Replacement Referrals: Yuly Lentz MD [Physician] - 10/20/17 10:00 am (Follow-up appointment with on 10/20/17 at 10:00 am. If you need to be seen before then by your primary care, please call for an earlier appointment.) April Boston PA-C [Physician [employer]] - (1. Follow-up with April Boston PA-C on Saturday, October 07, 2017 at 2:00pm. 2. Follow-up with April Boston PA-C on Saturday, October 14, 2017 at 11:15am.) - Patient Data Vitals - Most Recent: Last Vital Signs Temp 98.0 F 09/29/17 20:00 Pulse 95 09/29/17 20:00 Resp 18 09/30/17 00:00 BP 131/73 09/29/17 20:00 Pulse Ox 98 09/30/17 07:00 Weight - Most Recent: 160 lb 14.999 oz Med Orders - Current: Current Medications Discontinued Medications Bisacodyl (Dulcolax) 5 mg PO DAILY PRN PRN Reason: Constipation Bupivacaine HCl (Marcaine 0.25%) Confirm Administered Dose 30 ml .ROUTE .STK- MED ONE Stop: 09/29/17 06:26 Bupivacaine HCl (Marcaine 0.25%) Confirm Administered Dose 30 ml .ROUTE .STK- MED ONE Stop: 09/29/17 06:51 Last Admin: 09/29/17 09:23 Dose: 4 ml Calcium Carbonate/Glycine (Calcium Carbonate) 600 mg PO DAILY [facility] Last Admin: 09/30/17 09:00 Dose: 600 mg Cefazolin Sodium (Ancef) Confirm Administered Dose 2 gm .ROUTE .STK-MED ONE Stop: 09/29/17 06:25 Last Admin: 09/29/17 08:40 Dose: 2 gm Cefazolin Sodium (Ancef) Confirm Administered Dose 2 gm .ROUTE .STK-MED ONE Stop: 09/29/17 07:05 Cholecalciferol (Vitamin D3) 4,000 units PO DAILY [facility] Last Admin: 09/30/17 09:00 Dose: 4,000 units Morphine Sulfate 8 mg/Epinephrine HCl 0.3 mg/Cefuroxime Sodium 750 mg/Ketorolac Tromethamine 30 mg/Sodium Chloride 27.9 ml 0 mg .XX ONETIME ONE Stop: 09/29/17 09:01 Last Admin: 09/29/17 08:33 Dose: 788.3 mg Cyclobenzaprine HCl (Flexeril) 10 mg PO TID PRN PRN Reason: Spasms Last Admin: 09/30/17 14:52 Dose: 10 mg Dexamethasone (Dexamethasone) Confirm Administered Dose 4 mg .ROUTE .STK-MED ONE Stop: 09/29/17 08:18 Diphenhydramine HCl (Benadryl) 25 mg IVPUSH Q4H PRN PRN Reason: Nausea Diphenhydramine HCl (Benadryl) 25 mg IVPUSH Q6H PRN PRN Reason: Pruritis Docusate Sodium (Colace) 100 mg PO BID PRN PRN Reason: Constipation Docusate Sodium (Colace) 100 mg PO BID [facility] Last Admin: 09/30/17 09:00 Dose: 100 mg Ephedrine Sulfate (Ephedrine Sulfate) 5 mg IVPUSH ASDIRECTED PRN PRN Reason: Hypotension Stop: 09/29/17 21:00 Famotidine (Pepcid) 20 mg PO Q12H [facility] Last Admin: 09/30/17 09:00 Dose: 20 mg Famotidine (Pepcid) Confirm Administered Dose 20 mg .ROUTE .STK-MED ONE Stop: 09/29/17 06:56 Fentanyl (Sublimaze) Confirm Administered Dose 100 mcg .ROUTE .STK-MED ONE Stop: 09/29/17 07:04 Fentanyl (Sublimaze) 50 mcg IVPUSH Q5M PRN PRN Reason: Pain Stop: 09/29/17 16:00 Haloperidol Lactate (Haldol) 1 mg IVPUSH ONETIME ONE Stop: 09/29/17 10:31 Last Admin: 09/29/17 11:22 Dose: Not Given Lactated Ringer's (Ringers, Lactated) 1,000 mls @ 125 mls/hr IV ASDIRECTED COLLIN Stop: 09/29/17 18:00 Cefazolin Sodium/Dextrose 2 gm (/ Premix) 50 mls @ 100 mls/hr IV Q8H [facility] Stop: 09/30/17 07:29 Last Admin: 09/30/17 06:05 Dose: 100 mls/hr Lidocaine HCl (Xylocaine-Mpf 1%) Confirm Administered Dose 4 mls @ as directed .ROUTE .STK-MED ONE Stop: 09/29/17 07:05 Lactated Ringer's (Ringers, Lactated) Confirm Administered Dose 2,000 mls @ as directed .ROUTE .STK-MED ONE Stop: 09/29/17 08:17 Iodine (Iodine 2% Mild Tincture) Confirm Administered Dose 30 ml .ROUTE .STK- MED ONE Stop: 09/29/17 06:25 Last Admin: 09/29/17 08:36 Dose: 18 ml Ketamine HCl (Ketalar) Confirm Administered Dose 500 mg .ROUTE .STK-MED ONE Stop: 09/29/17 07:05 Ketorolac Tromethamine (Toradol) 15 mg IVPUSH Q6H PRN PRN Reason: Pain Ketorolac Tromethamine (Toradol) Confirm Administered Dose 30 mg .ROUTE .STK- MED ONE Stop: 09/29/17 08:18 Lidocaine/Sodium Bicarbonate (Buffered Lidocaine 1% In Ns 8.4%) 0.25 ml IV ONETIME PRN PRN Reason: Prior to IV Start Stop: 09/29/17 18:00 Magnesium Hydroxide (Milk Of Magnesia) 30 ml PO BID PRN PRN Reason: Constipation Metoclopramide HCl (Reglan) 5 mg IVPUSH Q6H PRN PRN Reason: Nausea/Vomiting Last Admin: 09/29/17 18:52 Dose: 5 mg Midazolam HCl (Versed 1 Mg/Ml) Confirm Administered Dose 2 mg .ROUTE .STKabooza-MED ONE Stop: 09/29/17 07:05 Morphine Sulfate (Morphine) 2 mg IVPUSH Q2H PRN PRN Reason: Breakthrough Pain Morphine Sulfate (Duramorph Pf) Confirm Administered Dose 1 mg .ROUTE .STKabooza-MED ONE Stop: 09/29/17 06:56 Morphine Sulfate (Morphine) 2 mg IVPUSH Q2H PRN PRN Reason: Breakthrough Pain Naloxone HCl (Narcan) 0.1 mg IVPUSH Q5M PRN PRN Reason: Oversedation Ondansetron HCl (Zofran) 4 mg IVPUSH Q6H PRN PRN Reason: Nausea/Vomiting Last Admin: 09/29/17 16:00 Dose: 4 mg Ondansetron HCl (Zofran) Confirm Administered Dose 4 mg .ROUTE .STKabooza-MED ONE Stop: 09/29/17 08:17 Oxycodone/Acetaminophen (Percocet 325-5 Mg) 1 - 2 tab PO Q4H PRN PRN Reason: Pain Last Admin: 09/30/17 14:52 Dose: 2 tab Pantoprazole Sodium (Protonix) 40 mg PO ACBREAKFAST [facility] Last Admin: 09/30/17 09:00 Dose: 40 mg Propofol (Diprivan 20 Ml) Confirm Administered Dose 800 mg .ROUTE .STK-MED ONE Stop: 09/29/17 07:04 Rivaroxaban (Xarelto) 10 mg PO DAILY [facility] Last Admin: 09/30/17 09:51 Dose: 10 mg Scopolamine (Scopolamine) 1 each TRDERM Q72H PRN PRN Reason: Nausea and vomiting Senna (Senna) 8.6 mg PO BID PRN PRN Reason: Constipation Sodium Chloride (Saline Flush) 10 ml FLUSH ASDIRECTED PRN PRN Reason: Keep Vein Open Stop: 09/29/17 18:00 Tranexamic Acid (Cyklokapron) Confirm Administered Dose 1,000 mg .ROUTE .STK- MED ONE Stop: 09/29/17 06:25 Last Admin: 09/29/17 08:54 Dose: 1,000 mg Triamcinolone Acetonide (Kenalog-40) Confirm Administered Dose 80 mg .ROUTE .STK -MED ONE Stop: 09/29/17 06:25 Last Admin: 09/29/17 09:23 Dose: 80 mg Vancomycin HCl (Vancomycin) Confirm Administered Dose 1 gm .ROUTE .STK-MED ONE Stop: 09/29/17 06:25 Last Admin: 09/29/17 08:49 Dose: 1 gm *Q Meaningful Use (DIS) - VTE *Q VTE Criteria *Q: - Stroke *Q Stroke Criteria *Q: - AMI *Q AMI Criteria *Q:
--- NOTE | 2017-10-07 09:56 | PCM.OPNOTE ---
- General Post-Op/Procedure Note Date of Surgery/Procedure: 09/29/17 Operative Procedure(s): left total knee arthroplasty with right knee corticosteroid injection Pre Op Diagnosis: bilateral knee osteoarthrosis Post-Op Diagnosis: Same Anesthesia Technique: Local, MAC, Spinal Primary Surgeon: Luis Medina Anesthesia Provider: Abigail Cloud Coater Hand: April Boston Coater Hand: Nadya Abbasi EBL in mLs: 0 Complications: None Condition: Good
--- NOTE | 2017-10-07 10:54 | OR ---
DATE OF OPERATION: 09/29/2017 SURGEON: Luis Medina MD OPERATION PERFORMED: 1. Left total knee arthroplasty. 2. Right knee corticosteroid injection. PREOPERATIVE DIAGNOSIS: 1. Left knee osteoarthrosis. 2. Bilateral knee osteoarthrosis. POSTOPERATIVE DIAGNOSIS: 1. Left knee osteoarthrosis. 2. Bilateral knee osteoarthrosis. ANESTHESIA: Local MAC with spinal. ANESTHESIA PROVIDER: Abigail Whittington CRNA. ORNAMENTAL METALWORK DESIGNER: April Boston PA-C, and Nadya Abbasi LPN. ESTIMATED BLOOD LOSS: 0 mL COMPLICATIONS: None. CONDITION: Stable. IMPLANTS: 1. Danyelle size 4 PS femur. 2. [place] size 3 Panther tibial base plate. 3. Danyelle size 3, 9 mm PS X3 polyethylene. 4. [place] size 27 x 9 mm asymmetric patella. DESCRIPTION OF PROCEDURE: The patient was identified in the preop holding area. Proper site was marked and identified by the surgeon. The patient was taken back to the operating theater. After adequate anesthesia, the patient's left lower extremity had a nonsterile tourniquet applied and it was then sterilely prepped and draped in the usual sterile fashion. OR timeout was performed. The patient received 2 g IV Ancef. At this time, left lower extremity was exsanguinated. Tourniquet was insufflated to 300 mmHg. Standard medial parapatellar incision was made. Medial parapatellar arthrotomy was created. Deep fibers of the MCL were raised and anterior fat pad was resected. At this time, attention was turned to the patella. Patella measured 19, it was resected to a 13 for 27 x 9 mm patella. Drill holes were then drilled and found to be in adequate position. The drill was then drilled in the distal femur and the intramedullary distal femoral cutting guide was then placed. 8 mm was resected off the distal femur and was found to be an adequate resection. Sizing guide was placed. It was found to be a [place] size 4 PS femur that was shown on the implant record at the beginning of this dictation. The drill holes were drilled for the epicondylar axis using Whitesides line and epicondyles as reference. At this time, the 4-in-1 cutting block was placed. An anterior posterior and anterior and posterior chamfer cuts were then completed. The correct size box cut was then placed and the box cut was completed and found to be an adequate resection. Attention was turned to the tibia. The posterior medial lateral retractors were placed. The extramedullary tibial guide was placed. It was placed in the old footprint of the ACL. It was aligned with the center of the ankle and 0 degrees of slope, 9 mm was then resected off the unaffected lateral side. There was found to be an acceptable reduction. At this time, posterior osteophytes were removed along with medial and lateral meniscus. A trial implant was placed with a correct sized tibia that was mentioned at the beginning of the dictation. A [place] size 3, 9 mm PS X3 polyethylene was then placed. The patient's knee was brought through range of motion. The patella was tracking centrally and was stable to varus and valgus stress. Alignment was found to be roughly at 0 degrees. At this time, cement was mixed on the back table. The tibia was stamped and drilled in proper rotation. All cut surfaces were irrigated with pulse lavage irrigation with Ancef and then completely dried. Once this was completed, then the cement was ready. The universal tibial base plate was cemented in place. Next, the Danyelle size 4 PS femur cemented into place and the Danyelle size 3, 9 mm PS X3 polyethylene was placed. The patient's knee was brought into full extension. Excess cement was removed. The patella was then cemented in place at this time. Tourniquet was deflated. One liter dilute Betadine solution was irrigated through the knee along with 3 L of pulse lavage irrigation with Ancef. Periarticular injection was then completed. The patient's knee was brought through a range of motion. Once the cement had time to set up and it was found to be stable to varus valgus stress, the patella was tracking centrally with full range of motion. At this time, a #2 barbed suture was used for closure of the medial parapatellar arthrotomy. Topical tranexamic acid was placed. 2-0 Vicryl was used subcutaneously, a running 3-0 Monocryl was used subcuticularly. The patient tolerated the procedure well and was sent to the PACU in stable condition. After the procedure, the patient underwent a corticosteroid injection to the right knee under sterile technique, 2 mL 40 mg Kenalog and 4 mL of 0.25% Marcaine were injected to the right knee. The patient tolerated that as well. MMODAL /[id number]
== END 2017-09-30 14:55 | disposition home or self-care (01) ==
LOC: JD.SDS 06:08 → EDSTATUS 07:30 → JD.SDS 09-30 14:55
PROVIDERS: ATTEND Orthopaedic Surgery
DX: M17.0 Bilateral primary osteoarthritis of knee (principal); K21.9 Gastro-esophageal reflux disease without esophagitis; E78.00 Pure hypercholesterolemia, unspecified; Z79.899 Other long term (current) drug therapy
CPT/HCPCS: 20610; 27447; 36415; 73560; 80053; 85027; 87641; 94762; 97110; 97116; 97161; 97165; 97535; A9270; C1713; C1776; J0171; J0690; J0697; J1100; J1885; J2250; J2270; J2274; J2405; J2765; J3010; J3301; J3370; J3490; J7120; 01402; J2704

== ENCOUNTER 2017-11-26 07:55 | Day surgery (SDC) | payer OTHER ==
[~2017-11-26 07:55] MED LIST changes: +Ketamine 500 mg/10 ML MDV ONE; +Lidocaine 1% 4 ML ONE; +Lidocaine 1%/Sod Bicarbonate in NS 8.4% 1 ML Syringe IDERM PRN; -Lidocaine 1%/Sod Bicarbonate in NS 8.4% 1 ML Syringe IV PRN; +Midazolam 1 MG/ML 2 ML SDV ONE; +Propofol 200 MG/20 ML SDV ONE; +fentaNYL 100 MCG/2 ML SDV ONE
--- NOTE | 2017-11-26 08:19 | PCM.PREANE ---
Preanesthetic Assessment - Anesthesia/Transfusion/Family Hx Anesthesia History: Prior Anesthesia Without Reaction Type of Anesthesia Reaction: Excessive Nausea/Vomiting Family History of Anesthesia Reaction: No Transfusion History: No Prior Transfusion(s) - Review of Systems General: No Symptoms Pulmonary: No Symptoms Cardiovascular: No Symptoms Gastrointestinal: No Symptoms Neurological: No Symptoms Other: Reports: None - Physical Assessment NPO Status Date: 11/25/17 NPO Status Time: 22:30 Pulse: 84 O2 Sat by Pulse Oximetry: 99 Respiratory Rate: 16 Blood Pressure: 154/77 Temperature: 97.9 F Height: 5 ft 4 in Weight: 70.4 kg ASA Class: 2 Mental Status: Alert & Oriented x3 Airway Class: Mallampati = 1 Dentition: Reports: Normal Dentition Thyro-Mental Finger Breadths: 3 Mouth Opening Finger Breadths: 3 ROM/Head Extension: Full Lungs: Clear to Auscultation, Normal Respiratory Effort Cardiovascular: Regular Rate, Regular Rhythm - Allergies Allergies/Adverse Reactions: Allergies Allergy/AdvReac Type Severity Reaction Status Date / Time No Known Allergies Allergy Verified 09/26/17 13:02 - Blood Blood Available: No - Acknowledgements Anesthesia Type Planned: MAC Pt an Appropriate Candidate for the Planned Anesthesia: Yes Alternatives and Risks of Anesthesia Discussed w Pt/Guardian: Yes Pt/Guardian Understands and Agrees with Anesthesia Plan: Yes PreAnesthesia Questionnaire HEENT History: Reports: Sinusitis Cardiovascular History: Reports: Heart Murmur, High Cholesterol Respiratory History: Reports: None Gastrointestinal History: Reports: GERD Musculoskeletal History: Reports: Arthritis, Osteoarthritis Neurological History: Reports: Migraines - Past Surgical History HEENT Surgical History: Reports: Cataract Surgery GI Surgical History: Reports: Appendectomy, Colonoscopy Female Surgical History: Reports: Breast Biopsy Musculoskeletal Surgical History: Reports: Knee Replacement - SUBSTANCE USE Smoking Status *Q: Never Smoker Tobacco Use Within Last Twelve Months: No Second Hand Smoke Exposure: No Days Per Week of Alcohol Use: 0 Recreational Drug Use History: No - HOME MEDS Home Medications: Home Meds Calcium Carbonate [Calcium] 1 tab PO DAILY 09/26/17 [History] Cholecalciferol (Vitamin D3) [Vitamin D3] 1 cap PO DAILY 09/26/17 [History] Lansoprazole 15 mg PO DAILY 09/26/17 [History] - CURRENT (IN HOUSE) MEDS Current Meds: Current Medications Lactated Ringer's (Ringers, Lactated) 1,000 mls @ 125 mls/hr IV ASDIRECTED COLLIN Lidocaine/Sodium Bicarbonate (Buffered Lidocaine 1% In Ns 8.4%) 0.25 ml IDERM ONETIME PRN PRN Reason: Prior to IV Start Sodium Chloride (Saline Flush) 10 ml FLUSH ASDIRECTED PRN PRN Reason: Keep Vein Open Discontinued Medications Fentanyl (Sublimaze) Confirm Administered Dose 100 mcg .ROUTE .STK-MED ONE Stop: 11/26/17 07:47 Lidocaine HCl (Xylocaine-Mpf 1%) Confirm Administered Dose 4 mls @ as directed .ROUTE .STK-MED ONE Stop: 11/26/17 07:47 Ketamine HCl (Ketalar) Confirm Administered Dose 500 mg .ROUTE .STK-MED ONE Stop: 11/26/17 07:48 Midazolam HCl (Versed 1 Mg/Ml) Confirm Administered Dose 2 mg .ROUTE .STK-MED ONE Stop: 11/26/17 07:47 Propofol (Diprivan 20 Ml) Confirm Administered Dose 200 mg .ROUTE .STK-MED ONE Stop: 11/26/17 07:47
[2017-11-26] MEDS ORDERED: Ondansetron 4 MG/2 ML SDV ONE (08:58)
[2017-11-26] MEDS ORDERED: Ondansetron 4 MG/2 ML SDV IVPUSH PRN (09:18)
[2017-11-26] MEDS ORDERED: fentaNYL 100 MCG/2 ML SDV IVPUSH ONE (09:30)
--- NOTE | 2017-12-01 22:03 | PCM.OPNOTE ---
- General Post-Op/Procedure Note Date of Surgery/Procedure: 11/26/17 Operative Procedure(s): left total knee arthroplasty manipulation under anesthesia Pre Op Diagnosis: left knee arthrofibrosis Post-Op Diagnosis: Same Anesthesia Technique: MAC Primary Surgeon: Luis Medina Anesthesia Provider: Suni Jiang Community Resource Officer: April Boston EBL in mLs: 0 Complications: None Condition: Good
--- NOTE | 2017-12-01 22:38 | OR ---
DATE OF OPERATION: 11/26/2017 SURGEON: Luis Medina MD OPERATION PERFORMED: Left total knee arthroplasty, manipulation under anesthesia. PREOPERATIVE DIAGNOSIS: Left knee arthrofibrosis. POSTOPERATIVE DIAGNOSIS: Left knee arthrofibrosis. ANESTHESIA TECHNIQUE: MAC. ANESTHESIA PROVIDER: Suni Jiang CRNA. MOTORIZED SQUAD SERGEANT: April Boston PA-C. ESTIMATED BLOOD LOSS: Not applicable. COMPLICATIONS: None. CONDITION: Stable DESCRIPTION OF PROCEDURE: The patient was identified in the preop holding area. Proper site was marked and identified by the surgeon. The patient was taken back to the operating theater, where time-out was performed. At this time, the left lower extremity had pre-manipulation motion measured at 0 to roughly 60 degrees. At this time, the patient's knee was brought through gentle range of motion and was able to be easily obtained 127 degrees of flexion after the first initial little bit of resistance. At this time, the patient had range of motion 0-127 degrees and was stable throughout varus and valgus stress. This with no signs of instability or loosening. At this time, the patient was sent to PACU in stable condition. We will begin physical therapy as soon as possible. ANESTHESIA: MMODAL /[id number]
== END 2017-11-26 10:27 | disposition home or self-care (01) ==
LOC: JD.SDS 07:55
PROVIDERS: ATTEND Orthopaedic Surgery
DX: M24.662 Ankylosis, left knee (principal); E78.5 Hyperlipidemia, unspecified; K21.9 Gastro-esophageal reflux disease without esophagitis; Z79.899 Other long term (current) drug therapy
CPT/HCPCS: 27447; J2250; J2405; J3010; J7120; J2704

== ENCOUNTER 2021-02-04 18:55 | Emergency (ER) | payer OTHER ==
[2021-02-04] MEDS ORDERED: Lidocaine 1% 10 ML MDV INJECT ONE (19:54)
[2021-02-04] MEDS ORDERED: Diphtheria,Pertussis(Acell),Tetanus Vaccine 0.5 ML Syringe IM ONE (19:54)
--- NOTE | 2021-02-04 20:47 | EDM.PDOC ---
ED HPI GENERAL MEDICAL PROBLEM - General Chief Complaint: Upper Extremity Injury/Pain Stated Complaint: HAND LAC Time Seen by Provider: 02/04/21 19:21 Source of Information: Reports: Patient, RN Notes Reviewed History Limitations: Reports: No Limitations - History of Present Illness INITIAL COMMENTS - FREE TEXT/NARRATIVE: Patient is a 66-year-old female presenting to the emergency department complaints of a laceration to her right hand. States that she was opening a can of pineapple when the lid to the can cut her hand. She is unsure when her tetanus vaccination was; however, she thinks it was approximately 8 years ago. Right Hand Pain Score (Numeric/FACES): 5 - Related Data Allergies Allergy/AdvReac Type Severity Reaction Status Date / Time No Known Allergies Allergy Verified 11/26/17 08:30 Home Meds: Home Meds Calcium Carbonate [Calcium] 1 tab PO DAILY 09/26/17 [History] Cholecalciferol (Vitamin D3) [Vitamin D3] 1 cap PO DAILY 09/26/17 [History] Lansoprazole 15 mg PO DAILY 09/26/17 [History] Lactobacillus Acidophilus [Probiotic] 1 cap PO DAILY 02/04/21 [History] Past Medical History HEENT History: Reports: Sinusitis Cardiovascular History: Reports: Heart Murmur, High Cholesterol Respiratory History: Reports: None Gastrointestinal History: Reports: GERD Musculoskeletal History: Reports: Arthritis, Osteoarthritis Neurological History: Reports: Migraines - Infectious Disease History Infectious Disease History: Reports: Influenza, Novel Coronavirus - Past Surgical History HEENT Surgical History: Reports: Cataract Surgery GI Surgical History: Reports: Appendectomy, Colonoscopy Female Surgical History: Reports: Breast Biopsy Musculoskeletal Surgical History: Reports: Knee Replacement Social & Family History - Tobacco Use Tobacco Use Status *Q: Never Tobacco User - Caffeine Use Caffeine Use: Reports: Coffee, Soda - Recreational Drug Use Recreational Drug Use: No Review of Systems - Review of Systems Review Of Systems: Comprehensive ROS is negative, except as noted in HPI. ED EXAM, GENERAL - Physical Exam Exam: See Below Exam Limited By: No Limitations General Appearance: Alert, WD/WN, No Apparent Distress Respiratory/Chest: No Respiratory Distress, Lungs Clear, Normal Breath Sounds, No Accessory Muscle Use, Chest Non-Tender Cardiovascular: Normal Peripheral Pulses, Regular Rate, Rhythm, No Edema, No Gallop, No JVD, No Murmur, No Rub Skin Exam: Other (2 cm laceration to the webbing between the thumb and index fingers. She has full strength to flexion and extension of the fingers. Full ROM to both fingers.) ED TRAUMA EXTREMITY PROCEDURES - Laceration/Wound Repair webbing between right thumb and index fingers Lac/Wound Length In cm: 2 Appearance: Subcutaneous Distal NVT: Neuro & Vascular Intact, No Tendon Injury Anesthetic Type: Local Local Anesthesia - Lidocaine (Xylocaine): 1% Plain Local Anesthetic Volume: 2cc Skin Prep: Chlorhexidine (Hibiciens), Providone-Iodine (Betadine), Saline, Sterile Drape Exploration/Debridement/Repair: Wound Explored, No Foreign Material Found Closed With: Sutures Suture Size: 4-0 # of Sutures: 5 Suture Type: Nylon Sterile Dressing Applied: Nurse Tetanus Status Addressed: Yes Complications: No Course - Vital Signs Last Recorded V/S: Last Vital Signs Temp 99.0 F 02/04/21 19:25 Pulse 75 02/04/21 19:25 Resp 20 02/04/21 19:25 BP 176/87 H 02/04/21 19:25 Pulse Ox 100 02/04/21 19:25 - Orders/Labs/Meds Orders: Active Orders 24 hr Category Date Time Status Vaccines to be Administered [RC] PER UNIT ROUTINE Care 02/04/21 19:54 Active Meds: Medications Discontinued Medications Generic Name Dose Route Start Last Admin Trade Name Freq PRN Reason Stop Dose Admin Diphtheria/Tetanus/Acell Pertussis 0.5 ml 02/04/21 19:54 02/04/21 20:15 Diphtheria,Pertussis(Acell),Tetanus Vaccine 0.5 Ml Syringe IM 02/04/21 19:55 0.5 ml .ONCE ONE Administration Lidocaine HCl 10 ml 02/04/21 19:54 02/04/21 20:15 Lidocaine 1% 10 Ml Mdv INJECT 02/04/21 19:55 10 ml ONETIME ONE Administration Departure - Departure Time of Disposition: 20:48 Disposition: Home, Self-Care 01 Condition: Good Clinical Impression: Hand laceration Qualifiers: Encounter type: initial encounter Foreign body presence: without foreign body Laterality: right Qualified Code(s): S61.411A - Laceration without foreign body of right hand, initial encounter - Discharge Information *PRESCRIPTION DRUG MONITORING PROGRAM REVIEWED*: No *COPY OF PRESCRIPTION DRUG MONITORING REPORT IN PATIENT ZEYNEP: No Instructions: Laceration Care, Adult Referrals: Rosibel Cho NP [Primary Care Provider] - Additional Instructions: You were seen in the emergency department today for a laceration to your right hand. The wound was cleansed and closed with 5 sutures. These should stay intact for 7-10 days. After that time they may be removed in the clinic by a nurse. Keep the wound clean and dry. Wash with normal soap and water twice daily. Do not submerge the wound in water. Watch for signs of infection including increased redness, swelling, or purulent drainage. If these should occur, you should be seen either in the clinic or in the emergency department as antibiotic treatment may be needed. Return to the ER as needed. Sepsis Event Note (ED) - Evaluation Sepsis Screening Result: No Definite Risk - Focused Exam Vital Signs: Vital Signs Temp Pulse Resp BP Pulse Ox 02/04/21 19:25 99.0 F 75 20 176/87 H 100 - My Orders Last 24 Hours: My Active Orders 02/04/21 19:54 Vaccines to be Administered [RC] PER UNIT ROUTINE - Assessment/Plan Last 24 Hours: My Active Orders 02/04/21 19:54 Vaccines to be Administered [RC] PER UNIT ROUTINE
== END 2021-02-04 21:14 | disposition home or self-care (01) ==
LOC: JD.ED 18:55
DX: S61.411A Laceration without foreign body of right hand, initial encounter (principal); Z23 Encounter for immunization; W26.8XXA Contact with other sharp object(s), not elsewhere classified, initial encounter
CPT/HCPCS: 12001; 90471; 90715; 99282-25; 99283

== ENCOUNTER 2024-11-17 16:40 | Emergency (ER) | payer MEDICARE, OTHER ==
[2024-11-17 19:01] LABS: BASOPHILS PERCENT AUTO 0.3 % (0.0-1.0); EOSINOPHILS ABSOLUTE AUTO 0.1 K/mm3 (0.0-0.4); EOSINOPHILS PERCENT AUTO 1.3 % (0.0-6.0); HEMATOCRIT 41.7 % (37.0-47.0); HEMOGLOBIN 13.9 gm/dl (12.0-16.0); IMMATURE GRAN ABSOLUTE AUTO 0.01 K/mm3 (0.00-0.05); IMMATURE GRAN PERCENT AUTO 0.3 % (0.0-0.4); LYMPHOCYTES ABSOLUTE AUTO 0.9 K/mm3 (1.0-4.8); LYMPHOCYTES PERCENT AUTO 23.7 % (24.0-44.0); MEAN CORPUSCULAR HEMOGLOBIN 30.4 pg (28.0-32.0); MEAN CORPUSCULAR HGB CONC 33.3 g/dl (32.0-36.0); MEAN CORPUSCULAR VOLUME 91.2 fl (83.0-99.0); MEAN PLATELET VOLUME 9.9 fl (9.4-12.3); MONOCYTES ABSOLUTE AUTO 0.7 K/mm3 (0.0-0.8); MONOCYTES PERCENT AUTO 17.4 % (0.0-8.0); NEUTROPHILS ABSOLUTE AUTO 2.2 K/mm3 (1.8-7.7); PLATELET COUNT,PLT 184 K/mm3 (150-400); RED BLOOD CELL COUNT 4.57 M/mm3 (4.10-5.30)
[2024-11-17] MEDS: Metoclopramide 10 MG/2 ML SDV IVPUSH ONE (19:15)
[2024-11-17] MEDS: Famotidine 20 MG/2 ML SDV IVPUSH ONE (19:18)
[2024-11-17 19:20] LABS: ALBUMIN 3.5 g/dl (3.4-5.0); BILIRUBIN TOTAL 0.5 mg/dL (0.2-1.0); BUN/CREATININE RATIO 11.3 (14-18); CALCIUM 8.7 mg/dL (8.5-10.1); CREATININE 0.8 mg/dL (0.55-1.02); EST CRCL DRUG DOSING (CG) 58.93 mL/min; PROTEIN TOTAL,TP 6.9 g/dl (6.4-8.2)
[2024-11-17] MEDS: Potassium Chloride 20 MEQ Tab.ER PO ONE (20:00)
[2024-11-17] MEDS: Sodium Chloride 0.9% 1,000 ML IV ONE (20:00)
[2024-11-17] MEDS: Ketorolac 30 MG/ML SDV IVPUSH ONE (20:00)
== END 2024-11-17 20:45 | disposition home or self-care (01) ==
LOC: JD.ED 16:40
DX: R11.2 Nausea with vomiting, unspecified (principal); E78.00 Pure hypercholesterolemia, unspecified; Z79.899 Other long term (current) drug therapy; Z86.16 Personal history of COVID-19
CPT/HCPCS: 36415; 71045; 80053; 84484; 85025; 87428; 93005; 96361; 96374; 96375; 99284; A9270; J1885; J2765; J7030